=== PATIENT | female | born 1990 | race Two or more races ===

== ENCOUNTER 2020-11-22 16:34 | Emergency (ER) | payer OTHER ==
[~2020-11-22] VITALS: Ht 170.2 cm; Wt 63.5 kg
--- NOTE | 2020-11-22 16:44 | NUR ---
SEEN AND EXAMINED BY .
--- NOTE | 2020-11-22 16:45 | NUR ---
JAQUELINE RACosmo "Hearing voices/Suicidal ideation Was in [facility] yesterday for same". On room air, breathing evenly and unlabored. Connected to the monitor and pulse ox. kept comfortable, will continue to monitor accordingly. Sitter at bedside for constant monitoring.
--- NOTE | 2020-11-22 16:53 | NUR ---
ER PHLEB AT BEDSIDE FOR EVAL.
[2020-11-22 17:08] LABS: BASOPHILS # (AUTO) 0.1 /CMM (0.0-0.2); EOSINOPHILS % (AUTO) 1.9 % (0.0-6.0); HEMATOCRIT 36 % (33-45); HEMOGLOBIN 12.1 g/dL (11.5-14.8); LYMPHOCYTES # (AUTO) 1.1 /CMM (0.8-4.8); LYMPHOCYTES % (AUTO) 15.3 % (20.0-44.0); MEAN CORPUSCULAR HGB CONC 34 g/dl (31.0-36.0); MEAN CORPUSCULAR VOLUME 87 fL (82-100); MONOCYTES # (AUTO) 0.6 /CMM (0.1-1.30); MONOCYTES % (AUTO) 8.4 % (2.0-12.0); NEUTROPHILS # (AUTO) 5.1 /CMM (1.8-8.9); NEUTROPHILS % (AUTO) 73.4 % (43.0-81.0); PLATELET COUNT (AUTO) 227 /CMM (150-450); RED BLOOD CELL COUNT(AUTO) 4.09 MIL/uL (4.0-5.2)
[2020-11-22 17:20] LABS: CALCIUM, SERUM 8.6 mg/dL (8.5-10.1); CARBON DIOXIDE 27 mmol/L (21-32); CHLORIDE 105 mmol/L (98-107); CREATININE 0.9 mg/dL (0.6-1.3); SODIUM SERUM 141 mmol/L (136-145); UREA NITROGEN, BLOOD 12 mg/dL (7-18)
[2020-11-22 17:27] LABS: BILIRUBIN,URINE NEGATIVE (NEGATIVE); COLOR,URINE YELLOW (YELLOW); LEUKOCYTE ESTERASE ,URINE NEGATIVE (NEGATIVE); NITRITE, URINE NEGATIVE (NEGATIVE); PROTEIN,URINE NEGATIVE (NEGATIVE); UGLUCOSE NEGATIVE (NEGATIVE); UROBILINOGEN,URINE 0.2 EU/dL (0.2)
[2020-11-22 17:44] LABS: ALKALINE PHOSPHATASE 74 U/L (46-116)
[2020-11-22 17:53] LABS: ALANINE AMINOTRANSFERASE 35 U/L (12-78); ALBUMIN 3.6 g/dL (3.4-5.0); ASPARTATE AMINOTRANSFERASE 62 U/L (15-37); BILIRUBIN,DIRECT 0.1 mg/dL (0.0-0.2); BILIRUBIN,TOTAL 0.2 mg/dL (0.2-1.0)
[2020-11-22 17:55] LABS: ALCOHOL, BLOOD < 3 mg/dL (0-0); GLUCOSE 106 mg/dL (74-106)
[2020-11-22] MEDS ORDERED: OLANZAPINE 10 MG VIAL IM ONE ×2 (18:50→19:00)
[2020-11-22] MEDS ORDERED: HALOPERIDOL LACTATE INJ 5 MG/ML VIAL ONE (19:15)
[2020-11-22] MEDS ORDERED: HALOPERIDOL LACTATE INJ 5 MG/ML VIAL IM ONE (19:30)
[2020-11-22] MEDS ORDERED: LORAZEPAM INJ 2 MG/ML VIAL ONE (20:15)
--- NOTE | 2020-11-22 20:21 | NUR ---
SPOKE TO FATHER REGARDING PLAN OF CARE.
--- NOTE | 2020-11-22 20:29 | NUR ---
LAB CALLED REGARDING NEGATIVE COVID RESULT.
[2020-11-22] MEDS ORDERED: LORAZEPAM INJ 2 MG/ML VIAL IM ONE (20:30)
--- NOTE | 2020-11-22 22:15 | NUR ---
PT REMAINS ON MONITOR AND PULSE OX. VSS. AWAKE IN BED.
--- NOTE | 2020-11-22 23:05 | NUR ---
PT PROVIDED WITH WATER AND BLANKET.
--- NOTE | 2020-11-23 00:04 | NUR ---
PT ASLEEP, REMAINS ON MONITOR.
--- NOTE | 2020-11-23 03:28 | NUR ---
Pt remains asleep, vss.
--- NOTE | 2020-11-23 03:34 | NUR ---
CALLED [employer] CHARITY Hammond, LEFT VOICE MASSAGE.
--- NOTE | 2020-11-23 03:41 | NUR ---
crisis clinican eta 60min
--- NOTE | 2020-11-23 05:03 | NUR ---
CHARITY P[employer]ING INSPECTOR HERE FOR PSYCH EVAL.
--- NOTE | 2020-11-23 06:40 | NUR ---
CALLED FOR BREAKFAST
--- NOTE | 2020-11-23 08:31 | NUR ---
CALLED [facility] [phone] [facility]. THEY HAVE SENT CLINICALS TO [facility] AND ARE WAITING CALL BACK. CALL WHEN WE GET A BED.
--- NOTE | 2020-11-23 08:43 | NUR ---
ASSESSED PT ON BED ASLEEP NOT IN RESPIRATORY DISTRESS, V/S STABLE, KEPT RESTED AND COMFORTABLE. WILL CONTINUE TO MONITOR.
--- NOTE | 2020-11-23 10:19 | NUR ---
[facility] [place] [phone]
--- NOTE | 2020-11-23 17:30 | NUR ---
[facility] CALLED HAVE BED WAITING ON [facility]
--- NOTE | 2020-11-23 19:38 | NUR ---
[facility] [phone] INTAKE [phone] NO ANSWER. CALLED KEVIN FOR ASSISTANCE. SHE WILL CALL US BACK.
--- NOTE | 2020-11-23 20:17 | NUR ---
ACCEPTING INFORMATION: PT ACCEPTED AT [facility] ACCEPTING MD WYATT PT WILL GO TO [facility] ROOM# 141-B PHONE # FOR REPORT
--- NOTE | 2020-11-23 20:27 | NUR ---
[facility] CALLED ETA 30MIN.
--- NOTE | 2020-11-23 20:28 | NUR ---
REPORT GIVEN TO DILEEP CROFT FOR [facility]
--- NOTE | 2020-11-23 21:15 | NUR ---
REPORT GIVEN TO EMT, PT TRASNFERED [facility].
[2020-11-23 21:17] VITALS: BP 111/59
== END 2020-11-23 21:18 ==
LOC: ER 16:43
DX: R45.851 Suicidal ideations (principal); R45.1 Restlessness and agitation; Z91.048 Other nonmedicinal substance allergy status; Z20.822 Contact with and (suspected) exposure to COVID-19
CPT/HCPCS: 36415; 80048; 80076; 80299; 80307; 80320; 81003; 84702; 85025; 87426; 96372 ×2; 99285; C9803; J1630; J2060; G0480; J3490